=== PATIENT | female | born 1990 | race Two or more races ===

== ENCOUNTER 2024-11-27 20:24 | Emergency (ER) | payer OTHER ==
[~2024-11-27] VITALS: Ht 154.9 cm; Wt 90.7 kg
[2024-11-27] MEDS ORDERED: METHYLPREDNISOLONE SOD SUCC 125 MG VIAL IV ONE (21:30)
[2024-11-27] MEDS ORDERED: IPRATROPIUM/ALBUTEROL SULFATE 3 ML AMPUL.NEB IH SCH (21:30)
[2024-11-27] MEDS ORDERED: METHYLPREDNISOLONE SOD SUCC 125 MG VIAL ONE (21:42)
[2024-11-27] MEDS ORDERED: WATER FOR INJ.,BACTERIOSTATIC 30 ML VIAL IJ ONE (21:42)
[2024-11-27] MEDS ORDERED: ACETAMINOPHEN 500 MG GEL..CAP PO ONE (22:09)
[2024-11-27] MEDS ORDERED: IPRATROPIUM/ALBUTEROL SULFATE 3 ML AMPUL.NEB IH ONE (22:24)
[2024-11-27 22:45] LABS: ABG PH 7.501 (7.35-7.45); ABG PO2 108.9 mmHg (80-100); ABG pCO2 27.6 mmHg (35-45); BASE EXCESS -0.6 mmol/l; BICARBONATE 21.1 mmol/l (23-25); SaO2 98.7 %; Tco2 21.9 mmol/l
[2024-11-27 22:51] LABS: allen test SATISFACTORY; mode ROOM AIR; puncture site RADIAL RIGHT
[2024-11-27 22:52] LABS: o2 21 %
[2024-11-27 23:19] LABS: HEMATOCRIT 39.1 % (36.0-45.00); HEMOGLOBIN 13.4 g/dL (12.0-15.00); MEAN CELL VOLUME 87.1 fL (80.00-100.00); MEAN CORPUSCULAR HEMOGLOBIN 29.9 pg (27.00-32.0); MEAN CORPUSCULAR HGB CONC 34.3 g/dl (32.0-36.0); PLATELET COUNT 265 K/uL (150-450); RED BLOOD COUNT 4.49 M/uL (4.00-6.00)
[2024-11-27 23:21] LABS: COVID-19 AG NEGATIVE (NEGATIVE)
[2024-11-27 23:26] LABS: INFLUENZA A AG NEGATIVE (NEGATIVE)
[2024-11-27] MEDS ORDERED: MIGRANOW KIT50 MG MC (23:41)
[2024-11-27] MEDS ORDERED: [UNRECOGNIZED DRUG - OTHER] PO (23:41)
== END 2024-11-28 01:16 | disposition home or self-care (01) ==
LOC: ER 20:24
PROVIDERS: Preventive Medicine Public Health & General Preventive Medicine
DX: J45.901 Unspecified asthma with (acute) exacerbation (principal); J06.9 Acute upper respiratory infection, unspecified; Z20.822 Contact with and (suspected) exposure to COVID-19; Z88.8 Allergy status to other drugs, medicaments and biological substances